=== PATIENT | male | born 1945 | race Caucasian/White ===

== ENCOUNTER 2018-05-17 21:20 | Emergency (ER) | payer OTHER ==
[~2018-05-17] VITALS: Ht 185.4 cm; Wt 108.9 kg
[~2018-05-17 21:20] MED LIST: AMIO200T4 PO; LOSA100T3 PO; LOVA40TA PO; RIVA20TA PO
[2018-05-17 21:23] VITALS: BP_SYST 159
== END 2018-05-17 22:08 | disposition home or self-care (01) ==
LOC: SED 21:20
DX: K92.1 Melena (principal); I48.91 Unspecified atrial fibrillation; I10 Essential (primary) hypertension; Z90.49 Acquired absence of other specified parts of digestive tract
CPT/HCPCS: 99283

== ENCOUNTER 2022-10-01 10:42 | Emergency (ER) | payer OTHER ==
[~2022-10-01] VITALS: Ht 175.3 cm; Wt 108.9 kg
[~2022-10-01 10:42] MED LIST changes: -AMIO200T4 PO; +AMIO200T61 PO; -LOSA100T3 PO; +LOSA100T4 PO
[2022-10-01 11:56] VITALS: BP_SYST 135; PULSE 74; RESP 17; TEMP 97.3; O2SAT 98
[2022-10-01 12:16] LABS: ANION GAP 9 (5-15); BASOPHILS % (AUTO) 0.3 % (0.0-2.0); CALCIUM 8.2 mg/dL (8.4-11.0); CHLORIDE 105 mmol/L (98-107); CREATININE 0.95 mg/dL (0.55-1.30); EOSINOPHILS # (AUTO) 0.1 K/uL (0.0-0.4); EOSINOPHILS % (AUTO) 0.8 % (0.0-4.0); GLUCOSE 96 mg/dL (74-106); HEMATOCRIT 48.6 % (36-54); HEMOGLOBIN 15.8 g/dL (14.0-18.0); LYMPHOCYTES # (AUTO) 1.4 K/uL (1.0-5.5); LYMPHOCYTES % (AUTO) 7.9 % (20.5-51.5); MEAN CORPUSCULAR HEMOGLOBIN 30 pg (27-31); MEAN CORPUSCULAR HGB CONC 33 % (32-36); MEAN CORPUSCULAR VOLUME 92 fL (79.0-98.0); MONOCYTES # (AUTO) 1.3 K/uL (0.0-1.0); MONOCYTES % (AUTO) 7.1 % (1.7-9.3); NEUTROPHILS # (AUTO) 15.1 K/uL (1.8-7.7); NEUTROPHILS % (AUTO) 83.9 % (40.0-70.0); PLATELET COUNT (AUTO) 189 K/uL (130-430); RED BLOOD CELL COUNT(AUTO) 5.26 MIL/uL (4.2-6.2); RED CELL DISTRIBUTION WIDTH 14.8 % (9.0-15.0); UREA NITROGEN, BLOOD 17 mg/dL (8-21)
[2022-10-01 12:37] LABS: ALANINE AMINOTRANSFERASE 39 U/L (12-78); ALBUMIN 3.6 g/dL (3.4-4.8); ASPARTATE AMINOTRANSFERASE 40 U/L (10-37); TOTAL BILIRUBIN 0.8 mg/dL (0.0-1.0)
[2022-10-01 12:38] LABS: INR 1.2 (0.80-1.20); PROTHROMBIN TIME 12.5 SECS (9.5-12.5)
[2022-10-01] MEDS ORDERED: CEPH250C PO (13:02)
[2022-10-01] MEDS ORDERED: TRAM50TA2 PO (13:02)
[2022-10-01 13:52] VITALS: BP_SYST 136; PULSE 74; RESP 18; TEMP 97.3; O2SAT 97
== END 2022-10-01 13:53 | disposition home or self-care (01) ==
LOC: SED 10:42
DX: S30.1XXA Contusion of abdominal wall, initial encounter (principal); R06.02 Shortness of breath; I10 Essential (primary) hypertension; Z79.899 Other long term (current) drug therapy; X58.XXXA Exposure to other specified factors, initial encounter; Y93.89 Activity, other specified; Y92.89 Other specified places as the place of occurrence of the external cause; Y99.8 Other external cause status
CPT/HCPCS: 36415; 71045; 80053; 82550; 83880; 84484; 85025; 85610-TC; 85730-TC; 93005; 99285